=== PATIENT | female | born 1955 | race Two or more races ===

== ENCOUNTER 2023-02-01 08:15 | Inpatient (IN) | payer OTHER ==
[~2023-02-01] VITALS: Ht 162.6 cm; Wt 72.6 kg
[2023-02-01] MEDS ORDERED: NORVASC5 MG PO (09:39)
[2023-02-01] MEDS ORDERED: AVALIDE 300-121 EACH PO (09:39)
[2023-02-01] MEDS ORDERED: GABAPENTIN800 M1 PO (09:40)
[2023-02-01] MEDS ORDERED: BONIVA150 MG PO (09:40)
[2023-02-01] MEDS ORDERED: NABUMETONE750 MG PO (09:40)
[2023-02-08] MEDS ORDERED: TIZANIDINE HCL4 M1 (13:01)
[2023-02-08] MEDS ORDERED: PERCOCET 5-3251 EACH PO (17:23)
[2023-02-08] MEDS ORDERED: DUI500 PO (17:23)
[2023-02-08] MEDS ORDERED: ELIQUIS2.5 MG PO (17:23)
== END 2023-02-08 18:47 | DRG 470 ==
LOC: O/R 02-06 05:30 → SURG 02-06 05:30 → SURH 02-06 07:00 → SURG 02-06 15:55
PROVIDERS: ADMIT Orthopaedic Surgery; ATTEND Orthopaedic Surgery
PROC: 0SR90J9 Replacement of Right Hip Joint with Synthetic Substitute, Cemented, Open Approach (ICD-10-PCS; principal; 2023-02-06 07:00)
PROC: 30233N1 Transfusion of Nonautologous Red Blood Cells into Peripheral Vein, Percutaneous Approach (ICD-10-PCS; 2023-02-08)
DX: M16.11 Unilateral primary osteoarthritis, right hip (principal); D62 Acute posthemorrhagic anemia; M81.0 Age-related osteoporosis without current pathological fracture; M70.61 Trochanteric bursitis, right hip; M25.751 Osteophyte, right hip; I10 Essential (primary) hypertension